=== PATIENT | male | born 1950 | race Caucasian/White ===

== ENCOUNTER → 2017-04-27 | Outpatient (CLI) | payer BC ==
[~2017-04-27] MED LIST: ALLO300T2 PO; ASPCH81X PO; DOXY100C76 PO; LISI-729 PO
--- NOTE | 2017-04-27 13:18 | DIAGNOSTIC IMAGING REPORT ---
ABDOMINAL WALL ULTRASOUND CLINICAL HISTORY: UMBILICAL HERNIA COMPARISON STUDY: CT scan performed August 2013 FINDINGS: There is a persistent fat-containing umbilical hernia. This was incompletely reducible. The hernia measuring approximate 6 cm in transverse diameter. The hernia neck measuring approximately 2 cm.. IMPRESSION: Fat-containing umbilical hernia measuring approximately 6 cm. Electronically signed by: Ronal Whitley M.D. 04/27/2017 1:16 PM Dictated Date/Time: 04/27/2017 1:15 PM
== END | disposition home or self-care (01) ==
LOC: C.ULTRBC 12:45
PROVIDERS: ATTEND Surgery
DX: K42.9 Umbilical hernia without obstruction or gangrene (principal)

== ENCOUNTER → 2017-05-11 | Outpatient (CLI) | payer BC ==
[~2017-05-11] VITALS: Ht 182.9 cm; Wt 154.6 kg
[~2017-05-11] MED LIST changes: +NAPR1TAB9 PO
[2017-05-11 12:04] VITALS: Ht 182.9 cm; Wt 154.6 kg
--- NOTE | 2017-05-11 12:35 | PAT Medication Instructions ---
Service Date May 11, 2017. Current Home Medication List Allopurinol (Zyloprim), 300 MG PO QPM Aspirin (Aspirin Chewable), 81 MG PO QPM Lisinopril (Zestril), 5 MG PO QPM Naproxen (Aleve), 220-440 MG PO PRN Medication Instructions For Your Scheduled Surgery -Contact your surgeon for instructions: Naproxen (Aleve), 220-440 MG PO PRN - Hold the following medications 7 days prior to surgery: Aspirin (Aspirin Chewable), 81 MG PO QPM - Take the following medications as scheduled the night before surgery: Allopurinol (Zyloprim), 300 MG PO QPM Lisinopril (Zestril), 5 MG PO QPM NOTHING TO EAT OR DRINK AFTER MIDNIGHT If you have any questions please call us at [phone] or [phone] or [phone]
[2017-05-11 13:26] LABS: BASO % 0.4 %; BASO ABS # 0.03 K/uL (0-0.2); EOS ABS # 0.14 K/uL (0-0.5); HEMATOCRIT 45.1 % (42-52); HEMOGLOBIN 15.1 g/dL (14.0-18.0); IG# 0.01 K/uL (0.00-0.02); LYMPH % 20.3 %; LYMPH ABS # 1.41 K/uL (1.2-3.4); MEAN CELL VOLUME 94.4 fL (80-100); MEAN CORPUSCULAR HEMOGLOBIN 31.6 pg (25-34); MEAN CORPUSCULAR HGB CONC 33.5 g/dl (32-36); MONO % 7.6 %; MONO ABS # 0.53 K/uL (0.11-0.59); NEUT % 69.6 %; NEUT ABS # 4.81 K/uL (1.4-6.5); PLATELET COUNT 176 K/uL (130-400); RED CELL DISTRIBUTION WIDTH CV 14.5 % (11.5-14.5); RED CELL DISTRIBUTION WIDTH SD 49.4 fL (36.4-46.3); WHITE BLOOD COUNT 6.93 K/uL (4.8-10.8)
[2017-05-11 15:32] LABS: CALCIUM 9.4 mg/dl (8.5-10.1); CREATININE 0.55 mg/dl (0.60-1.40); POTASSIUM 4.1 mmol/L (3.5-5.1)
== END | disposition home or self-care (01) ==
LOC: C.LAB 08:00 → EDSTATUS 05-23 07:00
PROVIDERS: ATTEND Surgery
DX: Z01.810 Encounter for preprocedural cardiovascular examination (principal); Z01.812 Encounter for preprocedural laboratory examination; I44.4 Left anterior fascicular block